=== PATIENT | female | born 1960 | race Caucasian/White ===

== ENCOUNTER 2018-07-30 13:09 | Emergency (ER) | payer OTHER ==
[~2018-07-30] VITALS: Ht 157.5 cm; Wt 56.7 kg
[~2018-07-30 13:09] MED LIST: MOTRIN800 MG PO; PREDNISONE5 MG/DOSE- PO
[2018-07-30] MEDS ORDERED: DIGOX250 MCG (13:25)
[2018-07-30] MEDS ORDERED: PLAVIX75 MG (13:25)
[2018-07-30] MEDS ORDERED: PROPAFENONE HC150 MG (13:25)
[2018-07-30] MEDS ORDERED: SINGULAIR10 MG (13:25)
[2018-07-30] MEDS ORDERED: VYZULTA5 ML (13:26)
[2018-07-30] MEDS ORDERED: [UNRECOGNIZED DRUG - OTHER] (13:26)
[2018-07-30] MEDS ORDERED: DORZOLAMIDE HCL10 ML (13:26)
== END 2018-07-30 18:37 | disposition home or self-care (01) ==
LOC: ER 13:09
DX: M25.551 Pain in right hip (principal); N39.0 Urinary tract infection, site not specified

== ENCOUNTER 2021-05-14 19:58 | Emergency (ER) | payer OTHER ==
[~2021-05-14] VITALS: Ht 157.5 cm; Wt 54.4 kg
[~2021-05-14 19:58] MED LIST changes: +DIGOX250 MCG; +DORZOLAMIDE HCL10 ML; +PLAVIX75 MG; +PROPAFENONE HC150 MG; +SINGULAIR10 MG; +VYZULTA5 ML; +[UNRECOGNIZED DRUG - OTHER]
== END 2021-05-14 21:55 | disposition home or self-care (01) ==
LOC: ER 19:58 → CPU-OBS 20:02 → ER 21:55
DX: R07.89 Other chest pain (principal); Z20.822 Contact with and (suspected) exposure to COVID-19
CPT/HCPCS: 93005; G0378; G0379

== ENCOUNTER 2021-07-29 13:35 | Emergency (ER) | payer OTHER ==
[~2021-07-29] VITALS: Ht 157.5 cm; Wt 59.9 kg
[2021-07-29] MEDS ORDERED: KETO10TA2 PO (21:55)
[2021-07-29] MEDS ORDERED: PEPCID AC20 MG PO (21:55)
[2021-07-29] MEDS ORDERED: DICY20TA PO (21:55)
== END 2021-07-29 22:11 ==
LOC: ER 13:35
DX: K80.20 Calculus of gallbladder without cholecystitis without obstruction (principal); R10.10 Upper abdominal pain, unspecified; E86.0 Dehydration

== ENCOUNTER 2022-05-01 19:12 | Emergency (ER) | payer OTHER ==
[~2022-05-01] VITALS: Ht 157.5 cm; Wt 56.7 kg
[~2022-05-01 19:12] MED LIST changes: +DICY20TA PO; +KETO10TA2 PO; +PEPCID AC20 MG PO
[2022-05-01] MEDS ORDERED: PRILOSEC OTC20 MG PO (19:49)
[2022-05-01] MEDS ORDERED: IPRATROPIU0.2 MG/1 M IH (19:50)
== END 2022-05-01 21:44 | disposition home or self-care (01) ==
LOC: ER 19:12
DX: J45.998 Other asthma (principal); Z20.822 Contact with and (suspected) exposure to COVID-19

== ENCOUNTER 2023-06-24 08:48 | Outpatient (CLI) | payer OTHER ==
[~2023-06-24 08:48] MED LIST changes: +IPRATROPIU0.2 MG/1 M IH; +PRILOSEC OTC20 MG PO
== END 2023-06-24 08:53 | disposition home or self-care (01) ==
LOC: RX STUDY 08:48
DX: K21.9 Gastro-esophageal reflux disease without esophagitis (principal)